=== PATIENT | female | born 1980 | race American Indian/Alaskan Native ===

== ENCOUNTER 2016-10-02 10:38 | Outpatient (CLI) | payer BC | END 2016-10-02 10:39 | disposition home or self-care (01) | LOC: SPVIMAG 10:38 | PROVIDERS: ATTEND Surgery | DX: M79.662 Pain in left lower leg (principal) ==

== ENCOUNTER 2016-12-17 20:01 | Emergency (ER) | payer BC ==
[2016-12-17 21:51] LABS: Basophils % (Auto) 0.4 % (0.0-1.8); Eosinophils % (Auto) 2.5 % (0.0-4.3); Hematocrit 36.8 % (30.3-42.9); Hemoglobin 12.4 gm/dl (10.1-14.3); Mean Corpuscular HGB Conc 34 % (30-34); Mean Corpuscular Hemoglobin 28 pg (28-32); Mean Corpuscular Volume 83 fl (79-97); Platelet Count 250 K/mm3 (140-440); Red Blood Count 4.43 M/mm3 (3.65-5.03); Red Cell Distribution Width 12.9 % (13.2-15.2); White Blood Count 6.8 K/mm3 (4.5-11.0)
[2016-12-17 23:05] LABS: Bacteria,Urine 1+ /HPF (Negative); Bilirubin,Urine NEG (Negative); Blood,Urine NEG (Negative); Ketones,Urine NEG (Negative); Leukocyte Esterase,Urine NEG (Negative); Nitrite,Urine NEG (Negative); Protein,Urine <15 mg/dL mg/dL (Negative); Urobilinogen,Urine < 2.0 mg/dL (<2.0); WBC,Urine < 1.0 /HPF (0.0-6.0)
--- NOTE | 2016-12-18 01:08 | Emergency Department Report ---
ED Abdominal Pain HPI - General Chief Complaint: Vaginal Bleeding Stated Complaint: VAGINAL BLEEDING Time Seen by Provider: 12/18/16 00:43 Source: patient Mode of arrival: Ambulatory Limitations: No Limitations - History of Present Illness Initial Comments: Pt is a 36 yr old female at unknown gestation who presents with 1 week of intermittent vaginal spotting and 1 day of lower abdominal cramping. Pt reports she took a home test 9 days ago and 7 days ago started to spot, but today started to have lower abdominal cramping with radiation to her lower back. Pt is taking pre-natals and denies any smoking or illicit drug use. Otherwise no fevers, chills, PERDUE, dizzines, NVD, SOB, falls, trauma, travel, or sick contacts. No prior miscarriages - Related Data Allergies Allergy/AdvReac Type Severity Reaction Status Date / Time No Known Allergies Allergy Verified 12/17/16 21:23 ED Review of Systems ROS: Stated complaint: VAGINAL BLEEDING Other details as noted in HPI Comment: All other systems reviewed and negative ED Past Medical Hx - Past Medical History Previous Medical History?: No - Surgical History Past Surgical History?: No - Social History Smoking Status: Never Smoker Substance Use Type: Alcohol ED Physical Exam - General Limitations: No Limitations General appearance: alert, in no apparent distress - Head Head exam: Present: atraumatic, normocephalic - Eye Eye exam: Present: normal appearance, PERRL, EOMI Pupils: Present: normal accommodation - ENT ENT exam: Present: mucous membranes moist - Neck Neck exam: Present: normal inspection - Respiratory Respiratory exam: Present: normal lung sounds bilaterally. Absent: respiratory distress - Cardiovascular Cardiovascular Exam: Present: regular rate, normal rhythm. Absent: systolic murmur, diastolic murmur, rubs, gallop - GI/Abdominal GI/Abdominal exam: Present: soft, normal bowel sounds. Absent: distended, tenderness, guarding, rebound, rigid - Rectal Rectal exam: Present: deferred - External exam: Present: normal external exam. Absent: bleeding - Extremities Exam Extremities exam: Present: normal inspection - Back Exam Back exam: Present: normal inspection - Neurological Exam Neurological exam: Present: alert, oriented X3 - Psychiatric Psychiatric exam: Present: normal affect, normal mood - Skin Skin exam: Present: warm, dry, intact, normal color. Absent: rash ED Course Vital Signs 0612/18/16 12/18/16 21:23 01:25 02:02 Temperature 98.6 F Pulse Rate 83 71 Respiratory 18 14 14 Rate Blood Pressure 123/91 Blood Pressure 117/79 [Left] O2 Sat by Pulse 100 99 99 Oximetry ED Medical Decision Making - Lab Data Result diagrams: 12/17/16 21:33 12/18/16 01:06 - Radiology Data Radiology results: report reviewed Transvaginal ultrasound: Manor-rump length of 10 mm which corresponds to 7 weeks gestation. Cardiac activity 126 bpm - Medical Decision Making PATIENT ELOPED FROM THE ED PRIOR TO RECEIVING RESULTS AND DISCHARGE INSTRUCTIONS Critical care attestation.: If time is entered above; I have spent that time in minutes in the direct care of this critically ill patient, excluding procedure time. ED Disposition Clinical Impression: Threatened Disposition: Z-[id number] ELOPED Is pt being admited?: No Condition: Stable Instructions: Threatened Miscarriage (ED) Additional Instructions: PLEASE FOLLOW UP WITH YOUR OBGYN CONTINUE YOUR VITAMINS PLEASE GO TO A LAB TO HAVE YOUR HORMONE CHECKED IN 2 DAYS TO ENSURE IT IS RISING ACCORDINGLY Referrals: PRIMARY CARE, [Primary Care Provider] - 3-5 Days
[2016-12-18 01:59] LABS: Anion Gap 17 mmol/L; Blood Urea Nitrogen 10 mg/dL (7-17); Calcium 9.1 mg/dL (8.4-10.2); Carbon Dioxide 23 mmol/L (22-30); Chloride 102.2 mmol/L (98-107); Glucose 84 mg/dL (65-100); Potassium 3.8 mmol/L (3.6-5.0); Sodium 138 mmol/L (137-145)
[2016-12-18 02:03] VITALS: BP 117/79
--- NOTE | 2016-12-18 02:55 | Ultrasound Report ---
FINAL REPORT PROCEDURE: US OB TRANSVAGINAL TECHNIQUE: Real-time transabdominal and transvaginal sonography of the uterus, placenta, amniotic fluid, adnexa, and fetus was performed with image documentation. Measurements were obtained to determine age/size. M-mode Doppler was used to document heartbeat. CPT 58662 and 85050 HISTORY: threatened COMPARISON: No prior studies are available for comparison. FINDINGS: ADDITIONAL GESTATION: None. CRL: 10 mm, which corresponds to a gestational age of: 7 weeks, 0 days. Yolk Sac: Normal. Embryonic Cardiac Activity: 126 beats per minute Gestational Sac: There is a small subchorionic bleed this measures up to 11 millimeters Amniotic fluid: Normal. Cervix: Normal. Right Ovary: There is a dominant cyst measuring 18 millimeters Left Ovary: There is a dominant complex cyst measuring 17 millimeters Estimated delivery date: 08/06/2017 Uterus and adnexa: As above IMPRESSION: 1. Single live intrauterine gestation at approximately 7 weeks, 0 days. 2. EDC by US 08/06/2017 3. Complete anatomic survey at 18-20 weeks suggested.
--- NOTE | 2016-12-18 02:55 | Ultrasound Report ---
FINAL REPORT PROCEDURE: US OB TRANSVAGINAL TECHNIQUE: Real-time transabdominal and transvaginal sonography of the uterus, placenta, amniotic fluid, adnexa, and fetus was performed with image documentation. Measurements were obtained to determine age/size. M-mode Doppler was used to document heartbeat. CPT 17626 and 62103 HISTORY: threatened COMPARISON: No prior studies are available for comparison. FINDINGS: ADDITIONAL GESTATION: None. CRL: 10 mm, which corresponds to a gestational age of: 7 weeks, 0 days. Yolk Sac: Normal. Embryonic Cardiac Activity: 126 beats per minute Gestational Sac: There is a small subchorionic bleed this measures up to 11 millimeters Amniotic fluid: Normal. Cervix: Normal. Right Ovary: There is a dominant cyst measuring 18 millimeters Left Ovary: There is a dominant complex cyst measuring 17 millimeters Estimated delivery date: 08/06/2017 Uterus and adnexa: As above IMPRESSION: 1. Single live intrauterine gestation at approximately 7 weeks, 0 days. 2. EDC by US 08/06/2017 3. Complete anatomic survey at 18-20 weeks suggested.
== END 2016-12-18 03:00 | disposition left against medical advice (07) ==
LOC: ED 20:01
DX: O20.0 Threatened abortion (principal); Z3A.01 Less than 8 weeks gestation of pregnancy
CPT/HCPCS: 36415; 76801; 76817; 80048; 81001; 84702; 85025; 86850; 86900; 86901; 99284

== ENCOUNTER 2019-01-09 10:34 | Outpatient (CLI) | payer BC | END 2019-01-09 10:35 | disposition home or self-care (01) | LOC: LAB 10:34 | PROVIDERS: ATTEND Obstetrics & Gynecology | DX: Z12.4 Encounter for screening for malignant neoplasm of cervix (principal); Z11.8 Encounter for screening for other infectious and parasitic diseases; A64 Unspecified sexually transmitted disease; Z86.19 Personal history of other infectious and parasitic diseases | CPT/HCPCS: 36415; 87591 ==

== ENCOUNTER 2019-01-27 07:46 | Outpatient (CLI) | payer BC ==
[2019-01-27 08:35] LABS: Hematocrit 40.8 % (30.3-42.9); Mean Corpuscular HGB Conc 34 % (30-34); Mean Corpuscular Volume 84 fl (79-97); Platelet Count 296 K/mm3 (140-440); Red Blood Count 4.83 M/mm3 (3.65-5.03); Red Cell Distribution Width 14.1 % (13.2-15.2)
[2019-01-27 09:03] LABS: Glucose,Fasting 97 mg/dL (65-100); LDL Cholesterol,Direct 111 mg/dL (50-130)
[2019-01-27 09:59] LABS: HDL Cholesterol 44 mg/dL (40-59)
[2019-01-30 14:00] LABS: Vitamin D, 25-OH, D2 <4 ng/mL
== END 2019-01-27 07:47 | disposition home or self-care (01) ==
LOC: LAB 07:46
PROVIDERS: ATTEND Surgery
DX: Z00.00 Encounter for general adult medical examination without abnormal findings (principal)
CPT/HCPCS: 36415; 82306; 82465; 82947; 83718; 83721; 84436; 84443; 84478; 84480; 85027